=== PATIENT | female | born 1995 | race Caucasian/White ===

== ENCOUNTER 2019-09-10 17:32 | Emergency (ER) | payer OTHER ==
[~2019-09-10] VITALS: Ht 175.3 cm; Wt 77.9 kg
[2019-09-10] MEDS ORDERED: TYLENOL 500 MG (17:41)
[2019-09-10] MEDS ORDERED: NAPR-885 (17:41)
[2019-09-10] MEDS ORDERED: ROBA750T4 PO (18:42)
[2019-09-10] MEDS ORDERED: NAPR-837 PO (18:42)
[2019-09-10] MEDS ORDERED: NAPROXEN 250 MG TAB PO ONE (18:45)
[2019-09-10] MEDS ORDERED: methocarbamoL 750 MG TAB PO ONE (18:45)
[2019-09-10] MEDS ORDERED: LIDOCAINE 5% (LIDODERM) PATCH TD ONE (18:45)
[2019-09-10 19:04] VITALS: BP 128/69
[2019-09-10] MEDS ORDERED: **NOTE PATIENT COMMENT** MISC XX SCH (21:00)
== END 2019-09-10 19:03 | disposition home or self-care (01) ==
LOC: M ED 17:32
DX: M54.5 Low back pain (principal)

== ENCOUNTER 2019-11-14 09:34 | Emergency (ER) | payer OTHER ==
[~2019-11-14] VITALS: Ht 175.3 cm; Wt 81.8 kg
[~2019-11-14 09:34] MED LIST: NAPR-837 PO; NAPR-885; ROBA750T4 PO; TYLENOL 500 MG
[2019-11-14] MEDS ORDERED: GNP200CA2 PO (09:41)
[2019-11-14] MEDS ORDERED: ERYTOIN8 OD (10:52)
[2019-11-14 10:59] VITALS: BP 121/82
[2019-11-14] MEDS ORDERED: TETRACAINE 0.5% OPHTH SOLN 4ML OD ONE (11:00)
== END 2019-11-14 11:01 | disposition home or self-care (01) ==
LOC: M ED 09:34
DX: H00.011 Hordeolum externum right upper eyelid (principal)

== ENCOUNTER 2020-04-01 21:09 | Emergency (ER) | payer OTHER ==
[~2020-04-01] VITALS: Ht 175.3 cm; Wt 86.6 kg
[~2020-04-01 21:09] MED LIST changes: +ERYTOIN8 OD; +IBUP200C90 PO
--- OUTSIDE RECORDS SUMMARY | 2020-04-01 21:16 | CCD ---
Author Author [employer] [facility] Organization [facility] Address Unknown Phone Unavailable Care Team Providers Care Cross Country/Track And Field Coach Name Role Phone LUIZ, HELEN MONIKA PA Unavailable Unavailable LUIZ, HELEN MONIKA PA Unavailable Unavailable LUIZ, HELEN MONIKA PA Unavailable Unavailable LUIZ, HELEN MONIKA PA Unavailable Unavailable LUIZ, HELEN MONIKA PA Unavailable Unavailable LUIZ, HELEN MONIKA PA Unavailable Unavailable LUIZ, HELEN MONIKA PA Unavailable Unavailable LUIZ, HELEN MONIKA PA Unavailable Unavailable LUIZ, HELEN MONIKA PA Unavailable Unavailable LUIZ, HELEN MONIKA PA Unavailable Unavailable LUIZ, HELEN MONIKA PA Unavailable Unavailable LUIZ, HELEN MONIKA PA Unavailable Unavailable LUIZ, HELEN MONIKA PA Unavailable Unavailable LUIZ, HELEN MONIKA PA Unavailable Unavailable LUIZ, HELEN MONIKA PA Unavailable Unavailable LUIZ, HELEN MONIKA PA Unavailable Unavailable LUIZ, HELEN MONIKA PA Unavailable Unavailable LUIZ, HELEN MONIKA PA Unavailable Unavailable LUIZ, HELEN MONIKA PA Unavailable Unavailable LUIZ, HELEN MONIKA PA Unavailable Unavailable LUIZ, HELEN MONIKA PA Unavailable Unavailable Re-disclosure Warning The records that you are about to access may contain information from federally-assisted alcohol or drug abuse programs. If such information is present, then the following federally mandated warning applies: This information has been disclosed to you from records protected by federal confidentiality rules (42 CFR part 2). The federal rules prohibit you from making any further disclosure of this information unless further disclosure is expressly permitted by the written consent of the person to whom it pertains or as otherwise permitted by 42 CFR part 2. A general authorization for the release of medical or other information is NOT sufficient for this purpose. The Federal rules restrict any use of the information to criminally investigate or prosecute any alcohol or drug abuse patient.The records that you are about to access may contain highly sensitive health information, the redisclosure of which is protected by Article 27-F of the [facility] Public Health law. If you continue you may have access to information: Regarding HIV / AIDS; Provided by facilities licensed or operated by the [facility] Office of Mental Health; or Provided by the [facility] Office for People With Developmental Disabilities. If such information is present, then the following [facility] mandated warning applies: This information has been disclosed to you from confidential records which are protected by state law. State law prohibits you from making any further disclosure of this information without the specific written consent of the person to whom it pertains, or as otherwise permitted by law. Any unauthorized further disclosure in violation of state law may result in a fine or assisted sentence or both. A general authorization for the release of medical or other information is NOT sufficient authorization for further disc losure. Encounters Encounter Providers Location Date Indications Data Source(s ) Emergency Attender: MONIKA DEWEY EMERGENCY ROOM-ER 06/04/2019 12:03:00 PM EDT - 06/04/2019 02:36:00 PM [facility] Patient discharged. Medications Medication Brand Name Start Date Product Form Dose Route Admi nistrative Instructions Pharmacy Instructions Status Indications Reaction Description Data Source(s) 4 mg 06/04/2019 12:00:00 AM EDT tablet,disintegrating 9 DISSOLVE ONE TABLET ON TONGUE EVERY 8 HOURS NEEDED DISSOLVE ONE TABLET ON TONGUE EVERY 8 HO URS NEEDED SOLD: 06/04/2019 [facility] 500 mg 06/04/2019 12:00:00 AM EDT tablet 30 TAKE ONE TABLET BY MOUTH THREE TIMES A DAY FOR 10 DAYS TAKE ONE TABLET BY MOUTH THREE TIMES A DAY FOR 10 DAYS SOLD: 06/04/2019 [facility] Insurance Providers Payer name Policy type / Coverage type Policy ID Covered libertarian ID Covered libertarian's relationship to espinoza Policy Espinoza Plan Information [facility] [id number] [facility] [id number] SELF PAY [id number] S [id number] Problems, Conditions, and Diagnoses Code Display Name Description Problem Type Effective Dates Data Source(s) F32.9 Major depressive disorder, single episod e, unspecified MAJOR DEPRESSIVE DISORDER, SINGLE EPISODE, UNSPECI Diagnosis 06/04/2019 12:03:00 PM [facility] F41.9 Anxiety disorder, unspecified ANXIETY DISORDER, UNSPEC IFIED Diagnosis 06/04/2019 12:03:00 PM [facility] K21.9 Gastro-esophageal reflux disease without esophagitis GASTRO-ESOPHAGEAL REFLUX DISEASE WITHOUT ESOPHAGIT Diagnosis 06/04/2019 12:03:00 PM [facility] A08.11 Acute gastroenteropathy due to [place] a gent ACUTE GASTROENTEROPATHY DUE TO [place]WALK AGENT Diagnosis 06/04/2019 12:03:00 PM [facility] A04.71 ENTEROCOLITIS DUE TO CLOSTRIDIUM DIFFICI LE, RECURR ENTEROCOLITIS DUE TO CLOSTRIDIUM DIFFICILE, RECURR Diagnosis 06/04/2019 12:03:00 PM [facility] R19.7 Diarrhea, unspecified DIARRHEA, UNSPECIFIED Diagnosis 06/04/2019 12:03:00 PM [facility] Results ID Date Data Source [id number] 02/01/2020 12:00:00 AM EST [facility] Name Value Range Interpretation Code Description Data Monica rce(s) Supporting Document(s) SARS coronavirus 2 RNA [Presence] in Res piratory specimen by DAMION with probe detection [facility] This lab was ordered by [facility] and reported by [facility]. ID Date Data Source [id number] 01/24/2020 12:00:00 AM EST [facility] Name Value Range Interpretation Code Description Data Monica rce(s) Supporting Document(s) SARS coronavirus 2 RNA [Presence] in Res piratory specimen by DAMION with probe detection [facility] This lab was ordered by [facility] and reported by [facility]. ID Date Data Source [id number] [facility]/05[facility]2019 [facility] Observation Report - [facility].VisitID: [id number] [place] [address] [phone], FRegistration Date/Time: 06/04/2019 11:29 Weight:68 kg (S). Height/Length:68 inches (S). BMI:22.8 PAST HISTORYProblems:Migraine Headache [Chronic].Gastroesophageal Reflux Disease.Depression.Anxiety Reaction. Additional Surgeries:Dental Work.Endoscopy.Exploratory laparotomy. Medications:Emetrol Oral, daily as needed, last dose 06/04/2019.Carafate Oral 1 gm, daily as needed, last dose 06/04/2019 0200. Allergies:No Known Drug Allergy. FAMILY HISTORYNo significant family medical history. (Electronically signed by Monika Noel P.A. 06/04/2019 21:04) Name Value Range Interpretation Code Description Data Monica rce(s) Supporting Document(s) ID Date Data Source [id number] 06/04/2019 01:12:00 PM EDT [facility] TSYSORDER [id number] Name Value Range Interpretation Code Description Data Monica rce(s) Supporting Document(s) INFLUENZA A NEGATIVE NEGATIVE [facility] INFLUENZA B NEGATIVE NEGATIVE [facility] This is a rapid molecular in vitro diagn ostic test utilizingan isothermal nucleaic acid amplification technology for thequalitative detection and discrimination of influenza A andB viral RNA. Negative results do not preclude influenzavirus infection and should not be used as the sole basis fordiagnosis, treatment or other patient management decisions. ID Date Data Source [id number] 06/04/2019 02:00:00 PM EDT [facility] TSYSORDER [id number] Name Value Range Interpretation Code Description Data Monica rce(s) Supporting Document(s) Campylobacter Not Detected Detected Not [facility] Clostridium difficile toxin AB DETECTED Detected [facility] Due to the high asymptomatic carriage ra king, especiallyin young children, the clinical relevance of the detectionof toxigenic C. difficile from stool should be consideredin the context of other clinical findings, patient age, andrisk factores which include hospitalization and antibioticexposure. Plesiomonas shigelloides Not Detected Detected Not [facility] Salmonella Not Detected Detected Not [facility] Vibrio Not Detected Detected Not [facility] spital Vibrio cholerae Not Detected Detected Not [facility] Yersinia enterocolitica Not Detected Detected [facility] Enteroaggregative E. coli Not Detected Detected [facility] Enteropathogenic E. coli Not Detected Detected [facility] Enterotoxigenic E. coli Not Detected Detected [facility] Shiga-like toxin-prod E. coli Not Detected Detected Not [facility] E. coli O157 Not Detected Detected Not [facility] Shigella/Enteroinvasive E coli Not Detected Detected Not [facility] Cryptosporidium Not Detected Detected Not [facility] Cyclospora cayetanensis Not Detected Detected Not [facility] Entamoeba histolytica Not Detected Detected Not [facility] Giardia Lamblia Not Detected Detected Not [facility] Adenovirus F 40/41 Not Detected Detected Not [facility] Astrovirus Not Detected Detected Not [facility] Norovirus GI/GII DETECTED Detected Not [facility] Rotavirus A Not Detected Detected Not [facility] Sapovirus Not Detected Detected Not [facility] spital The Above results have been determined b y using the [employer] system.[employer] is an automated in vitro diagnostic system thatutilizes nested multiplex Polymerase Chain Reaction (PCR)and high-resolution melting analysis to detect and identifymultiple nucleic acid targets from clinical specimens. ID Date Data Source [id number] 06/04/2019 01:04:00 PM EDT [facility] TSYSORDER [id number] Name Value Range Interpretation Code Description Data Monica rce(s) Supporting Document(s) GLUCOSE 99 mg/dL 74-106 [facility] BLOOD UREA NITROGEN 10 mg/dL 7-18 [facility] CREATININE 0.9 mg/dL 0.6-1.0 [facility] SODIUM 144 mmol/L 136-145 [facility] POTASSIUM 3.5 mmol/L 3.5-5.1 [facility] CHLORIDE 102 mmol/L 98-107 [facility] CO2 30 mmol/L 21-32 [facility] CALCIUM 9.2 mg/dL 8.5-10.1 [facility] ANION GAP 12.0 mmol/L 5-12 [facility] GLOMERULAR FILTRATION RATE 78 mL/min [facility] GFR IS CALCULATED IN mL/min/1.73m2 TOSHA L FUNCTION: >90MILDLY DECREASED: 60-89MILDY TO MODERATELY DECREASED: 45-59 MODERATELY TO SEVERELY DECREASED: 30-44SEVERELY DECREASED: 15-29RENAL FAILURE: <15 AST 23 U/L 15-37 [facility] ALT 34 U/L 12-78 [facility] ALKALINE PHOSPHATASE 86 U/L 46-116 [facility] pital TOTAL BILIRUBIN 1.3 mg/dL 0.2-1.0 H [facility] TOTAL PROTEIN 8.5 g/dl 6.4-8.2 H [facility] ALBUMIN 4.6 gm/dL 3.4-5.0 [facility] ID Date Data Source [id number] 06/04/2019 01:04:00 PM EDT [facility] TSYSORDER [id number] Name Value Range Interpretation Code Description Data Monica rce(s) Supporting Document(s) LIPASE 70 U/L 73-393 L [facility] ID Date Data Source [id number] 06/04/2019 01:03:00 PM EDT [facility] l TSYSORDER [id number] Entery of ALL Res ults have been RecheckedBy RH.GINA on 06/04/19 @ 1257. Name Value Range Interpretation Code Description Data Monica rce(s) Supporting Document(s) URINE RBC 0-2 /hpf 0-3 [facility] URINE WBC 0-2 /hpf 0-5 H [facility] URINE EPITHELIAL CELLS 4+ /hpf 0 [facility] URINE BACTERIA TRACE NONE SEEN [facility] URINE MUCUS TRACE NEGATIVE [facility] ID Date Data Source [id number] 06/04/2019 12:57:00 PM EDT [facility] TSYSORDER [id number] Entery of ALL [facility] ults have been RecheckedBy RH.GINA on 06/04/19 @ 1257. Name Value Range Interpretation Code Description Data Monica rce(s) Supporting Document(s) URINE COLOR. [facility] URINE APPEARANCE SLIGHTY [place] spital SPECIFIC GRAVITY,URINE 1.020 1.001-1.035 [facility] URINE LEUKOCYTE ESTERASE NEGATIVE NEGATIVE [facility] URINE NITRATE NEGATIVE NEGATIVE [facility] PH,URINE 8.5 5.0-9.0 [facility] URINE PROTEIN 1+(30) mg/dL NEGATIVE [facility] URINE GLUCOSE (UA) NEGATIVE mg/dL NEGATIVE [facility] URINE KETONE 15(SMALL) mg/dL NEGATIVE [facility] URINE UROBILINOGEN NORMAL(0.2-1) mg/dL 0-1 R [facility] URINE BILIRUBIN NEGATIVE NEGATIVE [facility] URINE BLOOD NEGATIVE NEGATIVE [facility] ID Date Data Source [id number] 06/04/2019 12:48:00 PM EDT [facility] TSYSORDER [id number] Name Value Range Interpretation Code Description Data Monica rce(s) Supporting Document(s) WHITE BLOOD COUNT 12.0 K/mm3 4.0-10.0 [facility] RED BLOOD COUNT 5.22 M/mm3 4.00-5.50 [facility] l HEMOGLOBIN 16.2 gm/dL 12.0-16.0 H [facility] HEMATOCRIT 46.4 % 36.0-48.8 [facility] MEAN CELL VOLUME 88.9 fl 80-96 [facility] MEAN CORPUSCULAR HEMOGLOBIN 31.0 pg 27.0-31.0 [facility] MEAN CORPUSCULAR HGB CONC 34.9 g/dl 32.0-36.0 [facility] RED CELL DISTRIBUTION WIDTH 11.9 % 10.0-14.5 [facility] PLATELET COUNT 283 K/mm3 172-450 [facility] MEAN PLATELET VOLUME 11.2 fl 9.0-13.0 [facility] pital GRAN % 88.2 % 50-80.0 H [facility] IG% 0.2 % 0.0-0.2 [facility] LYMPH % 5.9 % 25.0-50.0 L [facility] MONO % 5.5 % 2.0-10.0 [facility] EOS % 0.1 % 0-5.0 [facility] BASO % 0.1 % 0.0-2.0 [facility] GRAN # 10.6 K/mm3 2.0-8.00 H [facility] IG# 0.0 K/mm3 0.0-0.2 [facility] LYMPH # 0.7 K/mm3 1.0-5.0 L [facility] MONO # 0.7 K/mm3 0.10-1.20 [facility] EOS # 0.0 K/mm3 0.0-0.5 [facility] BASO # 0.0 K/mm3 0.0-0.2 [facility] Procedure
[2020-04-01] MEDS ORDERED: IMIT50TA PO (21:20)
[2020-04-01] MEDS ORDERED: AMIT10TA PO (21:20)
[2020-04-01 21:58] LABS: BASO % 0.4 % (0.0-1.0); EOS # 0.2 10^3/uL (0.0-0.5); EOS % 2.5 % (0.0-3.0); HEMOGLOBIN 15.2 g/dl (12.0-15.5); LYMPH # 3.5 10^3/uL (1.5-5.0); LYMPH % 43.7 % (24.0-44.0); MEAN CORPUSCULAR HEMOGLOBIN 30.5 pg (27.0-33.0); MEAN CORPUSCULAR HGB CONC 33.8 g/dl (32.0-36.5); MEAN CORPUSCULAR VOLUME 90.4 fl (80.0-96.0); MONO # 0.9 10^3/uL (0.0-0.8); MONO % 11.2 % (0.0-5.0); NEUTROPHILS # 3.4 10^3/uL (1.5-8.5); PLATELET COUNT, AUTOMATED 305 10^3/uL (150-450); RED BLOOD COUNT 4.98 10^6/uL (4.00-5.40); WHITE BLOOD COUNT 8.1 10^3/uL (4.0-10.0)
[2020-04-01] MEDS ORDERED: diphenhydrAMINE 50MG/ML VIAL (J1200) IV STA (22:04)
--- OUTSIDE RECORDS SUMMARY | 2020-04-01 22:14 | CCD ---
Author Author [facility] Address Unknown Phone Unavailable Care Team Providers Care Academic Director Name Role Phone LUIZ, HELEN MONIKA PA [...] is protected by Article 27-F of the [facility] Public Health law. If you continue you may have access to information: Regarding HIV / AIDS; Provided by facilities licensed or operated by the [facility] Office of Mental Health; or Provided by the [facility] Office for People With Developmental Disabilities. If such information is present, then the following [facility] mandated warning applies: This information has been [...] law may result in a fine or halfway sentence or both. A general authorization for the release of medical or other information is NOT sufficient authorization for further disc losure. Encounters Encounter Providers Location Date Indications Data Source(s ) Emergency Attender: MONIKA DEWEY EMERGENCY ROOM-ER 06/04/2019 12:03:00 PM EDT - 06/04/2019 02:36:00 PM [facility] Patient discharged. Medications Medication Brand Name [...] type / Coverage type Policy ID Covered republican ID Covered republican's relationship to espinoza Policy Espinoza Plan Information [facility] [id number] [facility] [id number] SELF PAY [id number] S [id number] Problems, Conditions, and Diagnoses Code Display Name Description Problem Type Effective Dates Data Source(s) F32.9 Major depressive disorder, single episod e, unspecified MAJOR DEPRESSIVE DISORDER, SINGLE EPISODE, UNSPECI Diagnosis 06/04/2019 12:03:00 PM [facility] F41.9 Anxiety disorder, unspecified ANXIETY DISORDER, UNSPEC IFIED Diagnosis 06/04/2019 12:03:00 PM [facility] K21.9 Gastro-esophageal reflux disease without esophagitis GASTRO-ESOPHAGEAL REFLUX DISEASE WITHOUT ESOPHAGIT Diagnosis 06/04/2019 12:03:00 PM [facility] A08.11 Acute gastroenteropathy due to Pearce a gent ACUTE GASTROENTEROPATHY DUE TO NORWALK AGENT Diagnosis 06/04/2019 12:03:00 [facility].71 ENTEROCOLITIS DUE TO CLOSTRIDIUM DIFFICI LE, RECURR ENTEROCOLITIS DUE TO CLOSTRIDIUM DIFFICILE, RECURR Diagnosis 06/04/2019 12:03:00 PM [facility] R19.7 Diarrhea, unspecified DIARRHEA, UNSPECIFIED Diagnosis 06/04/2019 12:03:00 PM [facility] Results ID Date Data Source [id number] 02/01/2020 12:00:00 AM EST [facility] Name Value Range Interpretation Code Description Data Monica rce(s) Supporting Document(s) SARS coronavirus 2 RNA [Presence] in Res piratory specimen by DAMION with probe detection [facility] This lab was ordered by [facility] and reported by [facility]. ID Date Data Source [id number] 01/24/2020 12:00:00 AM EST [facility] Name Value Range Interpretation Code Description Data Monica rce(s) Supporting Document(s) SARS coronavirus 2 RNA [Presence] in Res piratory specimen by DAMION with probe detection [facility] This lab was ordered by [facility] and reported by [facility]. ID Date Data Source [id number] 06/05/2019 [facility]:15:[facility] GARETH HARRY Observation Report - [facility].VisitID: [id number] [place] [address] [phone], FRegistration Date/Time: 06/04/2019 11:29 Weight:68 kg (S). [...] rce(s) Supporting Document(s) ID Date Data Source [id number] 06/04/2019 01:12:[address] [facility] l TSYSORDER [id number] Name Value Range Interpretation Code Description Data Monica rce(s) Supporting Document(s) INFLUENZA A NEGATIVE NEGATIVE [facility] INFLUENZA B NEGATIVE NEGATIVE [facility] This is a rapid molecular in vitro diagn ostic test utilizingan isothermal nucleaic acid amplification technology for thequalitative detection and discrimination of influenza A andB viral RNA. Negative results do not preclude influenzavirus infection and should not be used as the sole basis fordiagnosis, treatment or other patient management decisions. ID Date Data Source [id number] 06/04/2019 02:00:00 PM EDT [facility] TSYSORDER [id number] Name Value Range Interpretation Code Description Data Monica rce(s) Supporting Document(s) Campylobacter Not Detected Detected Not [facility] Clostridium difficile toxin AB DETECTED Detected [facility] Due to the high asymptomatic carriage ra king, especiallyin young children, the clinical relevance of the detectionof toxigenic C. difficile from stool should be consideredin the context of other clinical findings, patient age, andrisk factores which include hospitalization and antibioticexposure. Plesiomonas shigelloides Not Detected Detected Not [facility] Salmonella Not Detected Detected Not [facility] o[facility]ital Vibrio Not Detected Detected Not [facility] spital Vibrio cholerae Not Detected Detected Not [facility] Yersinia enterocolitica Not Detected Detected [facility] Enteroaggregative E. coli Not Detected Detected [facility] Enteropathogenic E. coli Not Detected Detected [facility] Enterotoxigenic E. coli Not Detected Detected [facility] Shiga-like toxin-prod E. coli Not Detected Detected Not [facility] E. coli O157 Not Detected Detected Not [facility] Shigella/Enteroinvasive E coli Not Detected Detected Not [facility] Cryptosporidium Not Detected Detected Not [facility] Cyclospora cayetanensis Not Detected Detected Not [facility] Entamoeba histolytica Not Detected Detected Not [facility] Giardia Lamblia Not Detected Detected Not [facility] Adenovirus F 40/41 Not Detected Detected Not [facility] Astrovirus Not Detected Detected Not [facility] Norovirus GI/GII DETECTED Detected Not [facility] Rotavirus A Not Detected Detected Not [facility] Sapovirus Not Detected Detected Not [facility] spital The Above results have been determined b y using the [employer]ia[employer] system.Film[employer] is an automated in vitro diagnostic system thatutilizes nested multiplex Polymerase Chain Reaction (PCR)and high-resolution melting analysis to detect and identifymultiple nucleic acid targets from clinical specimens. ID Date Data Source [id number] 06/04/2019 01:04:[address] [facility] l TSYSORDER [id number] Name Value Range Interpretation Code Description Data Monica rce(s) Supporting Document(s) GLUCOSE 99 mg/dL 74-106 [facility] BLOOD UREA NITROGEN 10 mg/dL 7-18 [facility] CREATININE 0.9 mg/dL 0.6-1.0 [facility] SODIUM 144 mmol/L 136-145 [facility] POTASSIUM 3.5 mmol/L 3.5-5.1 [facility] CHLORIDE 102 mmol/L 98-107 [facility] CO2 30 mmol/L 21-32 [facility] CALCIUM 9.2 mg/dL 8.5-10.1 [facility] ANION GAP 12.0 mmol/L 5-12 [facility] GLOMERULAR FILTRATION RATE 78 mL/min [facility] GFR IS CALCULATED IN mL/min/1.73m2 TOSHA L FUNCTION: >90MILDLY DECREASED: 60-89MILDY TO MODERATELY DECREASED: 45-59 MODERATELY TO SEVERELY DECREASED: 30-44SEVERELY DECREASED: 15-29RENAL FAILURE: <15 AST 23 U/L 15-37 [facility] ALT 34 U/L 12-78 [facility] ALKALINE PHOSPHATASE 86 U/L 46-116 [facility] pital TOTAL BILIRUBIN 1.3 mg/dL 0.2-1.0 H [facility] TOTAL PROTEIN 8.5 g/dl 6.4-8.2 H [facility] ALBUMIN 4.6 gm/dL 3.4-5.0 [facility] ID Date Data Source [id number] 06/04/2019 01:04:[address] [facility] TSYSORDER [id number] Name Value Range Interpretation Code Description Data Monica rce(s) Supporting Document(s) LIPASE 70 U/L 73-393 L [facility] ID Date Data Source [id number] 06/04/2019 01:03:[address] [facility] TSYSORDER [id number] [facility] of ALL Res ults have been RecheckedBy [email or web address].GINA on 06/04/19 @ 1257. Name Value Range Interpretation Code Description Data Monica rce(s) Supporting Document(s) URINE RBC 0-2 /hpf 0-3 [facility] URINE WBC 0-2 /hpf 0-5 H [facility] URINE EPITHELIAL CELLS 4+ /hpf 0 [facility] URINE BACTERIA TRACE NONE SEEN [facility] URINE MUCUS TRACE NEGATIVE [facility] ID Date Data Source [id number] 06/04/2019 12:57:00 PM EDT [facility] TSYSORDER [id number] [facility] ALL [facility] ults have been RecheckedBy RH.GINA on 06/04/19 @ 1257. Name Value Range Interpretation Code Description Data Monica rce(s) Supporting Document(s) URINE COLOR. [facility] URINE APPEARANCE SLIGHTY CLOUDY [facility] SPECIFIC GRAVITY,URINE 1.020 1.001-1.035 [facility] URINE LEUKOCYTE ESTERASE NEGATIVE NEGATIVE [facility] URINE NITRATE NEGATIVE NEGATIVE [facility] PH,URINE 8.5 5.0-9.0 [facility] URINE PROTEIN 1+(30) mg/dL NEGATIVE [facility] URINE GLUCOSE (UA) NEGATIVE mg/dL NEGATIVE [facility] URINE KETONE 15(SMALL) mg/dL NEGATIVE [facility] URINE UROBILINOGEN NORMAL(0.2-1) mg/dL 0-[address] [facility] URINE BILIRUBIN NEGATIVE NEGATIVE [facility] URINE BLOOD NEGATIVE NEGATIVE [facility] ID Date Data Source [id number] 06/04/2019 12:48:00 PM EDT [facility] TSYSORDER [id number] Name Value Range Interpretation Code Description Data Monica rce(s) Supporting Document(s) WHITE BLOOD COUNT 12.0 K/mm3 4.0-10.0 [facility] RED BLOOD COUNT 5.22 M/mm3 4.00-5.50 [facility] l HEMOGLOBIN 16.2 gm/dL 12.0-16.0 H [facility] HEMATOCRIT 46.4 % 36.0-48.8 [facility] MEAN CELL VOLUME 88.9 fl 80-96 [facility] MEAN CORPUSCULAR HEMOGLOBIN 31.0 pg 27.0-31.0 [facility] MEAN CORPUSCULAR HGB CONC 34.9 g/dl 32.0-36.0 [facility] RED CELL DISTRIBUTION WIDTH 11.9 % 10.0-14.5 [facility] PLATELET COUNT 283 K/mm3 172-450 [facility] MEAN PLATELET VOLUME 11.2 fl 9.0-13.0 [facility] pital GRAN % 88.2 % 50-80.0 H [facility] IG% 0.2 % 0.0-0.2 [facility] LYMPH % 5.9 % 25.0-50.0 L [facility] MONO % 5.5 % 2.0-10.0 [facility] EOS % 0.1 % 0-5.0 [facility] BASO % 0.1 % 0.0-2.0 [facility] GRAN # 10.6 K/mm3 2.0-8.00 H [facility] IG# 0.0 K/mm3 0.0-0.2 [facility] LYMPH # 0.7 K/mm3 1.0-5.0 L [facility] MONO # 0.7 K/mm3 0.10-1.20 [facility] EOS # 0.0 K/mm3 0.0-0.5 [facility] BASO # 0.0 K/mm3 0.0-0.2 [facility] Procedure
[2020-04-01] MEDS ORDERED: NS 1,000 ML IV ONE (22:15)
[2020-04-01] MEDS ORDERED: KETOROLAC 30 MG/ML 1ML VIAL IV ONE (22:15)
[2020-04-01] MEDS ORDERED: METOCLOPRAMIDE INJ 10MG/2ML VIAL (J2765 PER 1) IV ONE (22:15)
[2020-04-01 22:36] LABS: ERYTHROCYTE SEDIMENTATION RATE 2 mm/hr (0-20)
--- NOTE | 2020-04-01 22:44 | REPVR ---
PROCEDURE INFORMATION: Exam: CT Head Without Contrast Exam date and time: 04/01/2020 10:24 PM Age: 24 years old Clinical indication: Pain; Headache; Additional info: New GALLO, photophobia TECHNIQUE: Imaging protocol: Computed tomography of the head without contrast. Radiation optimization: All CT scans at this facility use at least one of these dose optimization techniques: automated exposure control; mA and/or kV adjustment per patient size (includes targeted exams where dose is matched to clinical indication); or iterative reconstruction. COMPARISON: No relevant prior studies available. FINDINGS: Brain: Normal. No hemorrhage. Unremarkable white matter. No mass effect. Cerebral ventricles: No ventriculomegaly. Bones/joints: Unremarkable. No acute fracture. Paranasal sinuses: Visualized sinuses are unremarkable. No fluid levels. Mastoid air cells: Visualized mastoid air cells are well aerated. Soft tissues: Unremarkable. IMPRESSION: No acute intracranial abnormality. Electronically signed by: Javid Fuchs On 04/01/2020 22:44:42 PM
[2020-04-02 00:02] VITALS: BP 113/60
== END 2020-04-02 00:26 | disposition home or self-care (01) ==
LOC: M ED 21:09
DX: R51.9 Headache, unspecified (principal); Z87.891 Personal history of nicotine dependence
CPT/HCPCS: 70450; 80047; 83735; 84702; 85025; 85652; 96361; 96374; 96375; 99284; J1200; J1885; J2765

== ENCOUNTER 2020-04-16 14:02 | Emergency (ER) | payer OTHER ==
[~2020-04-16] VITALS: Ht 175.3 cm; Wt 83.7 kg
[~2020-04-16 14:02] MED LIST changes: +AMIT10TA PO; +IMIT50TA PO
--- OUTSIDE RECORDS SUMMARY | 2020-04-16 14:09 | CCD ---
Author Author [facility] Address Unknown Phone Unavailable Care Team Providers Care Cloud Engineer Name Role Phone LUIZ, HELEN MONIKA PA [...] LUIZ, HELEN MONIKA PA Unavailable Unavailable LUIZ, HLEEN MONIKA PA Unavailable Unavailable LUIZ, HELEN MONIKA [...] is protected by Article 27-F of the [facility] Public Health law. If you continue you may have access to information: Regarding HIV / AIDS; Provided by facilities licensed or operated by the [facility] Office of Mental Health; or Provided by the [facility] Office for People With Developmental Disabilities. If such information is present, then the following [facility] mandated warning applies: This information has been [...] law may result in a fine or fdc sentence or both. A general authorization for the release of medical or other information is NOT sufficient authorization for further disc losure. Encounters Encounter Providers Location Date Indications Data Source(s ) Emergency Attender: MONIKA DEWEY EMERGENCY ROOM-ER 06/04/2019 12:03:00 PM EDT - 06/04/2019 02:36:00 PM [facility] Patient discharged. Medications Medication Brand Name Start [...] relationship to espinoza Policy Espinoza Plan Information [facility] [id number] [facility] [id number] SELF PAY [id number] S [id number] Problems, Conditions, and Diagnoses Code Display Name Description Problem Type Effective Dates Data Source(s) F32.9 Major depressive disorder, single episod e, unspecified MAJOR DEPRESSIVE DISORDER, SINGLE EPISODE, UNSPECI Diagnosis 06/04/2019 12:03:00 PM [facility] F41.9 Anxiety disorder, unspecified ANXIETY DISORDER, UNSPEC IFIED Diagnosis 06/04/2019 12:03:00 PM [facility] K21.9 Gastro-esophageal reflux disease without esophagitis GASTRO-ESOPHAGEAL REFLUX DISEASE WITHOUT ESOPHAGIT Diagnosis 06/04/2019 12:03:00 PM [facility] A08.11 Acute gastroenteropathy due to [place] a gent ACUTE GASTROENTEROPATHY DUE TO [place] AGENT Diagnosis 06/04/2019 12:03:00 PM [facility] A04.71 ENTEROCOLITIS DUE TO CLOSTRIDIUM DIFFICI LE, RECURR ENTEROCOLITIS DUE TO CLOSTRIDIUM DIFFICILE, RECURR Diagnosis 06/04/2019 12:03:00 PM [facility] R19.7 Diarrhea, unspecified DIARRHEA, UNSPECIFIED Diagnosis 06/04/2019 12:03:00 PM [facility] Results ID Date Data Source [id number] 02/01/2020 12:00:00 AM EST [facility] Name Value Range Interpretation Code Description Data Monica rce(s) Supporting Document(s) SARS coronavirus 2 RNA [Presence] in Res piratory specimen by DAMION with probe detection [facility] This lab was ordered by [facility] and reported by [facility]. ID Date Data Source [id number] 01/24/2020 12:00:00 AM EST [facility] Name Value Range Interpretation Code Description Data Monica rce(s) Supporting Document(s) SARS coronavirus 2 RNA [Presence] in Res piratory specimen by DAMION with probe detection [facility] This lab was ordered by [facility] and reported by [facility]. ID Date Data Source [id number] 06/05/2019 12:15:[facility]: GARETH HARRY Observation Report - [facility].VisitID: [id number] [place] [address] [phone], FRegistration Date/Time: 06/04/2019 11:29 Weight:68 kg (S). [...] rce(s) Supporting Document(s) ID Date Data Source [id number] 06/04/2019 01:12:00 PM EDT [facility] l TSYSORDER [id number] Name Value Range Interpretation Code Description Data Monica rce(s) Supporting Document(s) INFLUENZA A NEGATIVE NEGATIVE [facility] INFLUENZA B NEGATIVE NEGATIVE [facility] This is a rapid molecular in vitro diagn ostic test utilizingan isothermal nucleaic acid amplification technology for thequalitative detection and discrimination of influenza A andB viral RNA. Negative results do not preclude influenzavirus infection and should not be used as the sole basis fordiagnosis, treatment or other patient management decisions. ID Date Data Source [id number] 06/04/2019 02:00:00 PM EDT [facility] TSYSORDER [id number] Name Value Range Interpretation Code Description Data Monica rce(s) Supporting Document(s) Campylobacter Not Detected Detected Not [facility] Clostridium difficile toxin AB DETECTED Detected [facility] Due to the high asymptomatic carriage ra king, especiallyin young children, the clinical relevance of the detectionof toxigenic C. difficile from stool should be consideredin the context of other clinical findings, patient age, andrisk factores which include hospitalization and antibioticexposure. Plesiomonas shigelloides Not Detected Detected Not [facility] Salmonella Not Detected Detected Not [facility]ital Vibrio Not Detected Detected Not [facility] sp[facility] Vibrio cholerae Not Detected Detected Not [facility] Yersinia enterocolitica Not Detected Detected [facility] Enteroaggregative E. coli Not Detected Detected [facility] Enteropathogenic E. coli Not Detected Detected [facility] Enterotoxigenic E. coli Not Detected Detected [facility] Shiga-like toxin-prod E. coli Not Detected Detected Not [facility] E. coli O157 Not Detected Detected Not [facility] Shigella/Enteroinvasive E coli Not Detected Detected Not [facility] Cryptosporidium Not Detected Detected Not [facility] Cyclospora cayetanensis Not Detected Detected Not [facility] Entamoeba histolytica Not Detected Detected Not [facility] Giardia Lamblia Not Detected Detected Not [facility] Adenovirus F 40/41 Not Detected Detected Not [facility] Astrovirus Not Detected Detected Not [facility] Norovirus GI/GII DETECTED Detected Not [facility] Rotavirus A Not Detected Detected Not [facility] Sapovirus Not Detected Detected Not [facility] spital The Above results have been determined b y using the [employer]EL Top[employer]Level [employer] system.Film[employer] is an automated in vitro diagnostic system thatutilizes nested multiplex Polymerase Chain Reaction (PCR)and high-resolution melting analysis to detect and identifymultiple nucleic acid targets from clinical specimens. ID Date Data Source [id number] 06/04/2019 01:04:00 PM EDT [facility] l TSYSORDER [id number] Name Value Range Interpretation Code Description Data Monica rce(s) Supporting Document(s) GLUCOSE 99 mg/dL 74-106 [facility] BLOOD UREA NITROGEN 10 mg/dL 7-18 [facility] CREATININE 0.9 mg/dL 0.6-1.0 [facility] SODIUM 144 mmol/L 136-145 [facility] POTASSIUM 3.5 mmol/L 3.5-5.1 [facility] CHLORIDE 102 mmol/L 98-107 [facility] CO2 30 mmol/L 21-32 [facility] CALCIUM 9.2 mg/dL 8.5-10.1 [facility] ANION GAP 12.0 mmol/L 5-12 [facility] GLOMERULAR FILTRATION RATE 78 mL/min [facility] GFR IS CALCULATED IN mL/min/1.73m2 TOSHA L FUNCTION: >90MILDLY DECREASED: 60-89MILDY TO MODERATELY DECREASED: 45-59 MODERATELY TO SEVERELY DECREASED: 30-44SEVERELY DECREASED: 15-29RENAL FAILURE: <15 AST 23 U/L 15-37 [facility] ALT 34 U/L 12-78 [facility] ALKALINE PHOSPHATASE 86 U/L 46-116 [facility] pital TOTAL BILIRUBIN 1.3 mg/dL 0.2-1.0 H [facility] TOTAL PROTEIN 8.5 g/dl 6.4-8.2 H [facility] ALBUMIN 4.6 gm/dL 3.4-5.0 [facility] ID Date Data Source [id number] 06/04/2019 01:04:00 PM EDT [facility] l TSYSORDER [id number] Name Value Range Interpretation Code Description Data Monica rce(s) Supporting Document(s) LIPASE 70 U/L 73-393 L [facility] ID Date Data Source [id number] 06/04/2019 01:03:00 PM EDT [facility] l TSYSORDER [id number] Entery of ALL Res ults have been RecheckedBy RH.GINA on 06/04/19 @ 1257. Name Value Range Interpretation Code Description Data Monica rce(s) Supporting Document(s) URINE RBC 0-2 /hpf 0-3 [facility] URINE WBC 0-2 /hpf 0-5 H [facility] URINE EPITHELIAL CELLS 4+ /hpf 0 [facility] URINE BACTERIA TRACE NONE SEEN [facility] URINE MUCUS TRACE NEGATIVE [facility] ID Date Data Source [id number] 06/04/2019 12:57:00 PM EDT [facility] ital TSYSORDER [id number] Entery of ALL [facility] ults have been RecheckedBy RH.GINA on 06/04/19 @ 1257. Name Value Range Interpretation Code Description Data Monica rce(s) Supporting Document(s) URINE COLOR. [facility] URINE APPEARANCE SLIGHTY CLOUDY [facility] SPECIFIC GRAVITY,URINE 1.020 1.001-1.035 [facility] URINE LEUKOCYTE ESTERASE NEGATIVE NEGATIVE [facility] URINE NITRATE NEGATIVE NEGATIVE [facility] PH,URINE 8.5 5.0-9.0 [facility] URINE PROTEIN 1+(30) mg/dL NEGATIVE [facility] URINE GLUCOSE (UA) NEGATIVE mg/dL NEGATIVE [facility] URINE KETONE 15(SMALL) mg/dL NEGATIVE [facility] URINE UROBILINOGEN NORMAL(0.2-1) mg/dL 0-1 R [facility] URINE BILIRUBIN NEGATIVE NEGATIVE [facility] URINE BLOOD NEGATIVE NEGATIVE [facility] ID Date Data Source [id number] 06/04/2019 12:48:00 PM EDT [facility] TSYSORDER [id number] Name Value Range Interpretation Code Description Data Omnica rce(s) Supporting Document(s) WHITE BLOOD COUNT 12.0 K/mm3 4.0-10.0 [facility] RED BLOOD COUNT 5.22 M/mm3 4.00-5.50 [facility] l HEMOGLOBIN 16.2 gm/dL 12.0-16.0 H [facility] HEMATOCRIT 46.4 % 36.0-48.8 [facility] MEAN CELL VOLUME 88.9 fl 80-96 [facility] MEAN CORPUSCULAR HEMOGLOBIN 31.0 pg 27.0-31.0 [facility] MEAN CORPUSCULAR HGB CONC 34.9 g/dl 32.0-36.0 [facility] RED CELL DISTRIBUTION WIDTH 11.9 % 10.0-14.5 [facility] PLATELET COUNT 283 K/mm3 172-450 [facility] MEAN PLATELET VOLUME 11.2 fl 9.0-13.0 [facility] pital GRAN % 88.2 % 50-80.0 H [facility] IG% 0.2 % 0.0-0.2 [facility] LYMPH % 5.9 % 25.0-50.0 L [facility] MONO % 5.5 % 2.0-10.0 [facility] EOS % 0.1 % 0-5.0 [facility] BASO % 0.1 % 0.0-2.0 [facility] GRAN # 10.6 K/mm3 2.0-8.00 H [facility] IG# 0.0 K/mm3 0.0-0.2 [facility] LYMPH # 0.7 K/mm3 1.0-5.0 L [facility] MONO # 0.7 K/mm3 0.10-1.20 [facility] EOS # 0.0 K/mm3 0.0-0.5 [facility] BASO # 0.0 K/mm3 0.0-0.2 [facility] Procedure
[2020-04-16] MEDS ORDERED: ONDANSETRON 4MG/2ML VIAL IV ONE (14:45)
[2020-04-16] MEDS ORDERED: NS 1,000 ML IV ONE (14:45)
--- OUTSIDE RECORDS SUMMARY | 2020-04-16 14:47 | CCD ---
Author Author [facility] Address Unknown Phone Unavailable Care Team Providers Care Business Process Modeler Name Role Phone LUIZ, HELEN MONIKA PA [...] by Article 27-F of the [facility] Public Health law. If you continue you may have access to information: Regarding HIV / AIDS; Provided by facilities licensed or operated by the [facility] Office of Mental Health; or Provided by the [facility] Office for People With Developmental Disabilities. If such information is present, then the following [facility] mandated warning applies: This information has [...] law may result in a fine or chcf sentence or both. A general authorization for the release of medical or other information is NOT sufficient authorization for further disc losure. Encounters Encounter Providers Location Date Indications Data Source(s ) Emergency Attender: MONIKA DEWEY EMERGENCY ROOM-ER 06/04/2019 12:03:00 PM EDT - 06/04/2019 02:36:00 PM [facility] Patient discharged. Medications Medication Brand Name [...] type / Coverage type Policy ID Covered alliance party ID Covered alliance party's relationship to espinoza Policy Espinoza Plan Information [facility] [id number] [facility] [id number] SELF PAY [id number] S [id number] Problems, Conditions, and Diagnoses Code Display Name Description Problem Type Effective Dates Data Source(s) F32.9 Major depressive disorder, single episod e, unspecified MAJOR DEPRESSIVE DISORDER, SINGLE EPISODE, UNSPECI Diagnosis 06/04/2019 12:03:00 PM [facility] F41.9 Anxiety disorder, unspecified ANXIETY DISORDER, UNSPEC IFIED Diagnosis 06/04/2019 12:03:00 PM [facility] K21.9 Gastro-esophageal reflux disease without esophagitis GASTRO-ESOPHAGEAL REFLUX DISEASE WITHOUT ESOPHAGIT Diagnosis 06/04/2019 12:03:00 PM [facility] A08.11 Acute gastroenteropathy due to [place] a gent ACUTE GASTROENTEROPATHY DUE TO NORWALK AGENT Diagnosis 06/04/2019 12:03:[address] [facility] l A04.71 ENTEROCOLITIS DUE TO CLOSTRIDIUM DIFFICI LE, RECURR ENTEROCOLITIS DUE TO CLOSTRIDIUM DIFFICILE, RECURR Diagnosis 06/04/2019 12:03:00 PM [facility] R19.7 Diarrhea, unspecified DIARRHEA, UNSPECIFIED Diagnosis 06/04/2019 12:03:00 PM [facility] Results ID Date Data Source [id number] 02/01/2020 12:00:00 AM EST [facility] Name Value Range Interpretation Code Description Data Monica rce(s) Supporting Document(s) SARS coronavirus 2 RNA [Presence] in Res piratory specimen by DAMION with probe detection [facility] This lab was ordered by [facility] and reported by [employer]. ID Date Data Source [id number] 01/24/2020 12:00:00 AM EST [facility] Name Value Range Interpretation Code Description Data Monica rce(s) Supporting Document(s) SARS coronavirus 2 RNA [Presence] in Res piratory specimen by DAMION with probe detection [facility] This lab was ordered by [facility] and reported by [facility]. ID Date Data Source [id number] 06/05/2019 12:15:[facility]ARETH HARRY Observation Report - [facility].VisitID: [id number] [place] [address] [phone], FRegistration Date/Time: 06/04/2019 11:29 Weight:68 kg (S). [...] rce(s) Supporting Document(s) ID Date Data Source [id number] 06/04/2019 01:12:00 PM EDT [facility] TSYSORDER [id number] Name Value Range Interpretation Code Description Data Monica rce(s) Supporting Document(s) INFLUENZA A NEGATIVE NEGATIVE [facility] INFLUENZA B NEGATIVE NEGATIVE [facility] This is a rapid molecular in vitro diagn ostic test utilizingan isothermal nucleaic acid amplification technology for thequalitative detection and discrimination of influenza A andB viral RNA. Negative results do not preclude influenzavirus infection and should not be used as the sole basis fordiagnosis, treatment or other patient management decisions. ID Date Data Source [id number] 06/04/2019 02:00:00 PM EDT [facility] TSYSORDER [id number] Name Value Range Interpretation Code Description Data [facility] rce(s) Supporting Document(s) Campylobacter Not Detected Detected Not [facility] Clostridium difficile toxin AB DETECTED Detected [facility] Due to the high asymptomatic carriage ra king, especiallyin young children, the clinical relevance of the detectionof toxigenic C. difficile from stool should be consideredin the context of other clinical findings, patient age, andrisk factores which include hospitalization and antibioticexposure. Plesiomonas shigelloides Not Detected Detected Not [facility] Salmonella Not Detected Detected Not [facility] Vibrio Not Detected Detected Not [facility] spital Vibrio cholerae Not Detected Detected Not [facility] Yersinia enterocolitica Not Detected Detected [facility] Enteroaggregative E. coli Not Detected Detected [facility] Enteropathogenic E. coli Not Detected Detected [facility] Enterotoxigenic E. coli Not Detected Detected [facility] Shiga-like toxin-prod E. coli Not Detected Detected Not [facility] E. coli O157 Not Detected Detected Not [facility] Shigella/Enteroinvasive E coli Not Detected Detected Not [facility] Cryptosporidium Not Detected Detected Not [facility] Cyclospora cayetanensis Not Detected Detected Not [facility] Entamoeba histolytica Not Detected Detected Not [facility] Giardia Lamblia Not Detected Detected Not [facility] Adenovirus F 40/41 Not Detected Detected Not [facility] Astrovirus Not Detected Detected Not [facility] Norovirus GI/GII DETECTED Detected Not [facility] Rotavirus A Not Detected Detected Not [facility] Sapovirus Not Detected Detected Not [facility] spital The Above results have been determined b y using the [employer] system.[employer] is an automated in vitro diagnostic system thatutilizes nested multiplex Polymerase Chain Reaction (PCR)and high-resolution melting analysis to detect and identifymultiple nucleic acid targets from clinical specimens. ID Date Data Source [id number] 06/04/2019 01:04:00 PM EDT [facility] l TSYSORDER [id number] Name Value Range Interpretation Code Description Data Monica rce(s) Supporting Document(s) GLUCOSE 99 mg/dL 74-106 [facility] BLOOD UREA NITROGEN 10 mg/dL 7-18 [facility] ital CREATININE 0.9 mg/dL 0.6-1.0 [facility] SODIUM 144 mmol/L 136-145 [facility] POTASSIUM 3.5 mmol/L 3.5-5.1 [facility] CHLORIDE 102 mmol/L 98-107 [facility] CO2 30 mmol/L 21-32 [facility] CALCIUM 9.2 mg/dL 8.5-10.1 [facility] ANION GAP 12.0 mmol/L 5-12 [facility] GLOMERULAR FILTRATION RATE 78 mL/min [facility] GFR IS CALCULATED IN mL/min/1.73m2 TOSHA L FUNCTION: >90MILDLY DECREASED: 60-89MILDY TO MODERATELY DECREASED: 45-59 MODERATELY TO SEVERELY DECREASED: 30-44SEVERELY DECREASED: 15-29RENAL FAILURE: <15 AST 23 U/L 15-37 [facility] ALT 34 U/L 12-78 [facility] ALKALINE PHOSPHATASE 86 U/L 46-116 [facility] pital TOTAL BILIRUBIN 1.3 mg/dL 0.2-1.0 H [facility] TOTAL PROTEIN 8.5 g/dl 6.4-8.2 H [facility] ALBUMIN 4.6 gm/dL 3.4-5.0 [facility] ID Date Data Source [id number] 06/04/2019 01:04:00 PM EDT [facility] l TSYSORDER [id number] Name Value Range Interpretation Code Description Data Monica rce(s) Supporting Document(s) LIPASE 70 U/L 73-393 L [facility] ID Date Data Source [id number] 06/04/2019 01:03:00 PM EDT [facility] l TSYSORDER [id number] Entery of ALL Res ults have been RecheckedBy RH.GINA on 06/04/19 @ 1257. Name Value Range Interpretation Code Description Data Monica rce(s) Supporting Document(s) URINE RBC 0-2 /hpf 0-3 [facility] URINE WBC 0-2 /hpf 0-5 H [facility] URINE EPITHELIAL CELLS 4+ /hpf 0 [facility] URINE BACTERIA TRACE NONE SEEN [facility] URINE MUCUS TRACE NEGATIVE [facility] ID Date Data Source [id number] 06/04/2019 12:57:00 PM EDT [facility] ital TSYSORDER [id number] Entery of ALL Res ults have been RecheckedBy RH.GINA on 06/04/19 @ 1257. Name Value Range Interpretation Code Description Data Monica rce(s) Supporting Document(s) URINE COLOR. [facility] URINE APPEARANCE SLIGHTY CLOU[place] [facility]ital SPECIFIC GRAVITY,URINE 1.020 1.001-1.035 [facility] URINE LEUKOCYTE ESTERASE NEGATIVE NEGATIVE [facility] URINE NITRATE NEGATIVE NEGATIVE [facility] PH,URINE 8.5 5.0-9.0 [facility] URINE PROTEIN 1+(30) mg/dL NEGATIVE [facility] URINE GLUCOSE (UA) NEGATIVE mg/dL NEGATIVE [facility] URINE KETONE 15(SMALL) mg/dL NEGATIVE [facility] URINE UROBILINOGEN NORMAL(0.2-1) mg/dL 0-1 R [facility] URINE BILIRUBIN NEGATIVE NEGATIVE [facility] URINE BLOOD NEGATIVE NEGATIVE [facility] ID Date Data Source [id number] 06/04/2019 12:48:00 PM EDT [facility] l TSYSORDER [id number] Name Value Range Interpretation Code Description Data Monica rce(s) Supporting Document(s) WHITE BLOOD COUNT 12.0 K/mm3 4.0-10.0 [facility] RED BLOOD COUNT 5.22 M/mm3 4.00-5.50 [facility] l HEMOGLOBIN 16.2 gm/dL 12.0-16.0 H [facility] HEMATOCRIT 46.4 % 36.0-48.8 [facility] MEAN CELL VOLUME 88.9 fl 80-96 [facility] MEAN CORPUSCULAR HEMOGLOBIN 31.0 pg 27.0-31.0 [facility] MEAN CORPUSCULAR HGB CONC 34.9 g/dl 32.0-36.0 [facility] RED CELL DISTRIBUTION WIDTH 11.9 % 10.0-14.5 [facility] PLATELET COUNT 283 K/mm3 172-450 [facility] MEAN PLATELET VOLUME 11.2 fl 9.0-13.0 [facility] pital GRAN % 88.2 % 50-80.0 H [facility] IG% 0.2 % 0.0-0.2 [facility] LYMPH % 5.9 % 25.0-50.0 L [facility] MONO % 5.5 % 2.0-10.0 [facility] EOS % 0.1 % 0-5.0 [facility] BASO % 0.1 % 0.0-2.0 [facility] GRAN # 10.6 K/mm3 2.0-8.00 H [facility] IG# 0.0 K/mm3 0.0-0.2 [facility] LYMPH # 0.7 K/mm3 1.0-5.0 L [facility] MONO # 0.7 K/mm3 0.10-1.20 [facility] EOS # 0.0 K/mm3 0.0-0.5 [facility] BASO # 0.0 K/mm3 0.0-0.2 [facility] Procedure
--- NOTE | 2020-04-16 15:16 | REP ---
INDICATION: Coronavirus workup. COMPARISON: No comparison chest x-ray. TECHNIQUE: Portable upright AP chest radiograph. FINDINGS: There is an ill-defined somewhat nodular opacity along the left heart border in the left base. There is poor definition of the left hemidiaphragm laterally. No west blunting is seen. No other evidence of infiltrate. Heart is not enlarged. Pulmonary vasculature is not increased. No bony abnormality is seen.. IMPRESSION: Somewhat nodular ill-defined density left base along the left heart border. Lung madera otherwise clear. Otherwise no active disease.. <Electronically signed by Keven Morillo > 04/16/20 [id number]
[2020-04-16] MEDS ORDERED: IBUPROFEN 800 MG TAB PO ONE (15:30)
[2020-04-16 15:32] LABS: BASO % 0.3 % (0.0-1.0); EOS % 0.3 % (0.0-3.0); HEMOGLOBIN 16.2 g/dl (12.0-15.5); LYMPH # 1.9 10^3/uL (1.5-5.0); LYMPH % 31.6 % (24.0-44.0); MEAN CORPUSCULAR HEMOGLOBIN 30.2 pg (27.0-33.0); MEAN CORPUSCULAR HGB CONC 34.5 g/dl (32.0-36.5); MEAN CORPUSCULAR VOLUME 87.5 fl (80.0-96.0); MONO # 0.5 10^3/uL (0.0-0.8); MONO % 8.8 % (2.0-8.0); NEUTROPHILS # 3.5 10^3/uL (1.5-8.5); NEUTROPHILS % 58.3 % (36.0-66.0); PLATELET COUNT, AUTOMATED 239 10^3/uL (150-450); RED BLOOD COUNT 5.37 10^6/uL (4.00-5.40)
[2020-04-16 15:41] LABS: INR 0.97; PROTHROMBIN TIME 13.1 SECONDS (12.5-14.3)
[2020-04-16 15:42] LABS: PARTIAL THROMBOPLASTIN TIME 27.3 SECONDS (24.2-38.5)
[2020-04-16 15:44] LABS: D-DIMER QUANT 383.78 ng/ml (<500)
[2020-04-16 16:04] LABS: ALT/SGPT 121 U/L (12-78); BILIRUBIN,TOTAL 0.7 MG/DL (0.2-1.0); BLOOD UREA NITROGEN 12 MG/DL (7-18); CALCIUM LEVEL 8.8 MG/DL (8.5-10.1); CARBON DIOXIDE LEVEL 27 MEQ/L (21-32); CHLORIDE LEVEL 106 MEQ/L (98-107); CK-MB VALUE MASS < 1.0 NG/ML (<3.6); CPK CREATINE PHOSPHOKINASE 54 U/L (26-192); CREATININE FOR GFR 0.73 MG/DL (0.55-1.30); FERRITIN 266 NG/ML (8-252); GLOMERULAR FILTRATION RATE > 60.0 (>60); GLUCOSE, FASTING 77 MG/DL (70-100); LDH LACTATE DEHYDROGENASE 228 U/L (84-246); LIPASE 94 U/L (73-393); MB/CK RELATIVE INDEX 1.85 (< OR =4); SODIUM LEVEL 140 MEQ/L (136-145); TOTAL PROTEIN 7.6 GM/DL (6.4-8.2); TROPONIN I < 0.02 NG/ML (< 0.10)
[2020-04-16 16:19] VITALS: BP 116/67
[2020-04-16] MEDS ORDERED: METOCLOPRAMIDE INJ 10MG/2ML VIAL (J2765 PER 1) IV ONE (16:30)
[2020-04-16] MEDS ORDERED: ISOVUE-370 76% 100ML VIAL As Ordered ONE (17:13)
--- NOTE | 2020-04-16 17:50 | REPVR ---
PROCEDURE INFORMATION: Exam: CT Abdomen And Pelvis With Contrast Exam date and time: 04/16/2020 5:24 PM Age: 24 years old Clinical indication: Abdominal pain; Localized; Right lower quadrant (rlq); Additional info: Rlq pain TECHNIQUE: Imaging protocol: Computed tomography of the abdomen and pelvis with contrast. Axial, coronal and sagittal reformatted images were created and reviewed. Radiation optimization: All CT scans at this facility use at least one of these dose optimization techniques: automated exposure control; mA and/or kV adjustment per patient size (includes targeted exams where dose is matched to clinical indication); or iterative reconstruction. Contrast material: ISOVUE 370; Contrast volume: 100 ml; Contrast route: INTRAVENOUS (IV); COMPARISON: No relevant prior studies available. FINDINGS: Liver: Unremarkable. Gallbladder and bile ducts: No radiodense gallstones. No biliary ductal dilatation. Pancreas: Unremarkable. Spleen: Unremarkable. Adrenal glands: Normal. No mass. Kidneys and ureters: No mass. No radiodense calculi. No hydronephrosis. Stomach and bowel: No bowel wall thickening. No obstruction. No pneumatosis. Appendix: Normal. Intraperitoneal space: No free fluid. No organized fluid collection. No free air. Vasculature: Unremarkable. No aneurysm. Lymph nodes: Small mesenteric lymph nodes, nonspecific in appearance. No pathologically enlarged lymph nodes. Urinary bladder: Unremarkable as visualized. Reproductive: Unremarkable. Bones/joints: No acute osseous abnormality. Soft tissues: Unremarkable. IMPRESSION: 1. No CT evidence of acute intra-abdominal or pelvic pathology. 2. Additional findings, as above. Electronically signed by: Alex Orozco On 04/16/2020 17:50:41 PM
--- NOTE | 2020-04-16 17:54 | REPVR ---
PROCEDURE INFORMATION: Exam: CT Chest With Contrast; Diagnostic Exam date and time: 04/16/2020 5:24 PM Age: 24 years old Clinical indication: Chest pain; Additional info: Further clarification lll nodular density TECHNIQUE: Imaging protocol: Diagnostic computed tomography of the chest with contrast. Axial, coronal and sagittal reformatted images were created and reviewed. Radiation optimization: All CT scans at this facility use at least one of these dose optimization techniques: automated exposure control; mA and/or kV adjustment per patient size (includes targeted exams where dose is matched to clinical indication); or iterative reconstruction. Contrast material: ISOVUE 370; Contrast volume: 100 ml; Contrast route: INTRAVENOUS (IV); COMPARISON: [place] PORTABLE CHEST X-RAY 04/16/2020 3:06 PM FINDINGS: Lungs: Patchy areas of left greater than right ground-glass infiltration, predominantly rounded in morphology and peripheral in distribution. No consolidation. Pleural spaces: Unremarkable. No pneumothorax. No pleural effusion. Heart: Unremarkable. No cardiomegaly. No pericardial effusion. Aorta: Unremarkable. No aneurysm or dissection. Lymph nodes: No pathologically enlarged lymph nodes. Bones/joints: No acute osseous abnormality. Soft tissues: Unremarkable. IMPRESSION: Patchy areas of left greater than right ground-glass infiltration, predominantly rounded in morphology and peripheral in distribution. Commonly reported imaging features of COVID-19 pneumonia are present. Other processes such as influenza pneumonia and organizing pneumonia, as can be seen with drug toxicity and connective tissue disease, can cause a similar imaging pattern. (Reference: Vince) REFERENCES: Vince Menezes, et al., [employer] Society of [place] Expert Consensus Statement on Reporting Chest CT Findings Related to COVID-19. Endorsed by the Society of Thoracic Radiology, the [place] [employer], and RSNA. Published May 23, 2019. Electronically signed by: Alex Orozco On 04/16/2020 17:54:09 PM
[2020-04-16] MEDS ORDERED: ZOFR4TAB16 PO (17:58)
--- NOTE | 2020-04-17 14:06 | ED PDOC ---
Post-Departure Follow-Up radiology report faxed to [facility] Sheila Du MD Apr 17, 2020 14:06
== END 2020-04-16 18:17 | disposition home or self-care (01) ==
LOC: M ED 14:02
DX: U07.1 COVID-19 (principal); J18.9 Pneumonia, unspecified organism; G43.909 Migraine, unspecified, not intractable, without status migrainosus; Z79.899 Other long term (current) drug therapy
CPT/HCPCS: 71045; 71260; 74177; 80053; 81001; 82550; 82553; 82728; 83615; 83690; 84145; 84484; 84702; 85025; 85379; 85384; 85610; 85730; 86140; 87088; 96361; 96374; 96375; 99284; J2405; J2765; Q9967